=== PATIENT | male | born 1965 | race Caucasian/White ===

== ENCOUNTER 2022-07-24 10:35 | Outpatient (RCR) | payer OTHER, SELFPAY ==
[2022-07-24] MEDS: SODIUM CHLORIDE 0.9 % (FLUSH) 10 ML SYRINGE IVF (11:47)
[2022-07-24] MEDS: HEPARIN 500 UNIT/5 ML SYRINGE IVF (11:47)
== END 2023-01-20 23:59 | disposition home or self-care (01) ==
LOC: CCIC 10:35
PROVIDERS: Visit Provider Internal Medicine
DX: Z45.2 Encounter for adjustment and management of vascular access device (principal)
CPT/HCPCS: 99211; J1642